=== PATIENT | female | born 1940 | race Caucasian/White ===

== ENCOUNTER 2019-03-10 15:27 | Inpatient (IN) | payer MEDICARE ==
[~2019-03-10] VITALS: Ht 165.1 cm; Wt 108.4 kg
[2019-03-10 15:53] VITALS: BP 152/94
[2019-03-10] MEDS ORDERED: LOPRESSOR50 PO ×2 (15:59→16:00)
[2019-03-10] MEDS ORDERED: MAGOX 400400 MG PO (15:59)
[2019-03-10] MEDS ORDERED: SUPER B-50 COM1 EACH PO (15:59)
[2019-03-10] MEDS ORDERED: VITAMIN D3400 UNIT PO (15:59)
[2019-03-10] MEDS ORDERED: SYNTHROID112 MC1 PO (16:00)
[2019-03-10] MEDS ORDERED: KLOR-CON 1010 MEQ PO (16:00)
[2019-03-10] MEDS ORDERED: COUMADIN 3 MG TA3 M1 PO (16:00)
[2019-03-10] MEDS ORDERED: ONE TOUCH DELI1 EAC2 TOP (16:01)
[2019-03-10 16:02] LABS: ABSOLUTE EOSINOPHILS 0.1 thou/uL (0.0-0.7); ABSOLUTE LYMPHOCYTES 1.3 thou/uL (0.8-5.3); ABSOLUTE MONOCYTES 0.5 thou/uL (0.0-1.2); ABSOLUTE NEUTROPHILS 6.9 thou/uL (1.6-8.1); BASOPHILS 0.4 %; EOSINOPHILS 0.6 %; HEMATOCRIT 58.4 % (37.0-47.0); HEMOGLOBIN 19.4 gm/dL (12.0-15.0); LYMPHOCYTES 14.2 %; MCH 32.8 pg (26.0-34.0); MCHC 33.2 g/dL (28.0-37.0); MCV 98.8 fL (80.0-100.0); MONOCYTES 5.9 %; MPV 9.4 fl. (7.2-11.1); NUCLEATED RBCS 0 /100WBC; PLATELET COUNT* 185 thou/uL (150-400); POLYS 78.9 %; RBC 5.91 mil/uL (4.20-5.00); RDW-CV 14.2 % (10.5-14.5); WBC 8.8 thou/uL (4.0-11.0)
[2019-03-10] MEDS ORDERED: POTASSIUM20 PO (16:02)
[2019-03-10 16:14] LABS: CALCIUM 10.1 mg/dL (8.5-10.1); CREATININE 1.2 mg/dL (0.6-1.3); POTASSIUM 4.4 mmol/L (3.5-5.1)
[2019-03-10 16:16] LABS: APTT 35.5 Seconds (25.0-31.3); INR 2.5; PROTIME 24.8 Seconds (9.20-11.50)
[2019-03-10 16:19] LABS: ALBUMIN 3.9 g/dL (3.4-5.0); TOTAL BILIRUBIN 1.3 mg/dL (<0.1-1.0); TOTAL PROTEIN 8.3 g/dL (6.4-8.2)
[2019-03-10 16:30] LABS: ACETAMINOPHEN < 2 ug/mL (10-30); ALCOHOL < 10 mg/dL (<10); SALICYLATE < 2.8 mg/dL (2.8-20.0)
[2019-03-10 17:35] LABS: URINE BILIRUBIN NEGATIVE (Negative); URINE BLOOD NEGATIVE (Negative); URINE CLARITY CLEAR; URINE COLOR YELLOW; URINE GLUCOSE-RANDOM NEGATIVE (Negative); URINE KETONES NEGATIVE (Negative); URINE LEUKOCYTES-REFLEX NEGATIVE (Negative); URINE PROTEIN TRACE (Negative); URINE SPECIFIC GRAVITY >= 1.030 (1.005-1.030); URINE UROBILINOGEN 0.2 E.U./dl (0.2-1.0)
[2019-03-10 17:39] LABS: URINE NITRITE-REFLEX POSITIVE (Negative)
[2019-03-10 17:43] LABS: AMP/METHAMP Negative (Negative); BARBITURATES Negative (Negative); BENZODIAZEPINES Negative (Negative); COCAINE Negative (Negative); METHADONE Negative (Negative); OPIATES Negative (Negative); PCP Negative (Negative); THC Negative (Negative)
[2019-03-10 17:57] LABS: SQUAMOUS 4-10 Moderate /LPF (0-3); URINE RBC None Seen /HPF (0-2); URINE WBC-REFLEX 0-5 Rare /HPF (0-5)
[2019-03-10 17:58] LABS: BACTERIA-REFLEX >30 Many /HPF (None Seen); CASTS None Seen /LPF (None Seen); CRYSTALS None Seen /LPF (None Seen)
[2019-03-10 23:08] VITALS: BP 118/82
[2019-03-10 23:15] VITALS: BP 157/40
--- NOTE | 2019-03-10 23:30 | NUR ---
RECEIVED REPORT FROM ER AND PT TO ROOM AT 2255. PT ABLE TO SLIDE SELF FROM CART TO BED, STATES SHE IS NON-AMBULATORY BUT DOES TRANSFER SELF FROM BED TO CHAIR OR COMMODE. RT DISTAL CALF NOTED TO HAVE FLUID FILLED BLISTER. LOWER LEG AND FOOT NOTED TO BE DISCOLORED AND TUFF FLAKY SKIN. RT GROIN AND PUBIC AREA WITH REDNESS. NO BREAKDOWN NOTED TO MICH AREAS OR BUTTOCK. TELEMETRY APPLIED SHOWING A-FIB, CARDIZEM INFUSING AT 5 MG/HR. PT IS TEARFUL AND TALKING ABOUT SITUATION. 1:1 OBSERVATION. WILL CONT TO MONITOR AND ASSIST NEED. SEE ADMISSION ASSESSMENT AND HX.
[2019-03-11 04:00] VITALS: BP 132/64
--- NOTE | 2019-03-11 06:45 | NUR ---
SLEPT WELL TONIGHT. REPOSITIONS SELF IN BED. REMAINS 1:1 OBSERVATION FOR SI. TELEMETRY CONT TO SHOW A-FIB WITH RATE 90-110'S. NO COMPLAINTS VOICED. HS GOALS OF REST AND SAFETY ACHIEVED.
[2019-03-11 08:00] VITALS: BP 142/78
[2019-03-11 09:39] LABS: ABSOLUTE EOSINOPHILS 0.1 thou/uL (0.0-0.7); ABSOLUTE LYMPHOCYTES 1.2 thou/uL (0.8-5.3); ABSOLUTE MONOCYTES 0.5 thou/uL (0.0-1.2); ABSOLUTE NEUTROPHILS 5.1 thou/uL (1.6-8.1); BASOPHILS 0.7 %; EOSINOPHILS 1.2 %; HEMATOCRIT 54.4 % (37.0-47.0); HEMOGLOBIN 18.3 gm/dL (12.0-15.0); LYMPHOCYTES 17.7 %; MCH 33.2 pg (26.0-34.0); MCHC 33.6 g/dL (28.0-37.0); MCV 98.9 fL (80.0-100.0); MONOCYTES 7.6 %; MPV 9.5 fl. (7.2-11.1); NUCLEATED RBCS 0 /100WBC; PLATELET COUNT* 144 thou/uL (150-400); POLYS 72.8 %; RDW-CV 14.5 % (10.5-14.5)
[2019-03-11 09:45] LABS: CALCIUM 9.3 mg/dL (8.5-10.1); CREATININE 0.9 mg/dL (0.6-1.3); MAGNESIUM 1.2 mg/dL (1.8-2.4); POTASSIUM 3.9 mmol/L (3.5-5.1)
--- NOTE | 2019-03-11 10:27 | EKG ---
[place] [address] ELECTROCARDIOGRAM REPORT Name: MARILEE CATHERINE Room: [address] ADM IN .R.#: [id number] Admission: 03/10/19 Attend Phys: Jason Marina MD Discharge: Date of : 40 Report #: [id number] THIS REPORT FOR: //name// [facility] ED Test Date: 2019-03-10 Test Time: 20:37:06 Pat Name: MARILEE CATHERINE Department: Room: [facility] Gender: F Cannon Crewmember: [place] : [id number] Requested By: Gopal Monreal Order Number: [id number] MD: Reynaldo Johnson Measurements Intervals [place]way Rate: 101 P: [place]: QRS: -68 QRSD: 98 T: 5 QT: 388 QTc: 503 Interpretive Statements Atrial fibrillation Ventricular premature complex Left anterior fascicular block Abnormal R-wave progression, early transition Borderline T abnormalities, inferior leads Prolonged QT interval No previous ECG available for comparison Electronically Signed On 03-11-2019 10:27:24 CDT by Reynaldo Johnson [email or web address] <ELECTRONICALLY SIGNED> By: Reynaldo Johnson MD, [facility] 03/11/19 1027 36 36 Reynaldo Johnson MD, [facility] /EPI
--- NOTE | 2019-03-11 11:18 | NUR ---
SW met with pt to complete initial assessment, introduce self, and SW role. Pt with 1:1 sitter due to SI according to ER upon admission. Pt was sitting edge of bed, alert, oriented, appropriate in conversation/talkative. Pt explained that she is wc level, has wc, BSC over toilet. Pt has a son and dtr who assisted with groceries, transportation to doctors' visits. Pt said she was hopeful that her dtr would let pt live at dtr's house for a while but pt says that pt dtr has not offered that option. Pt has lived in a hotel alone. Pt has hx with Greg Johnson; pt said she only stayed one day/night because she was told she wouldn't really get any rehab. Pt open to rehab if necessary, possibly [facility], but pt also said she wasn't sure if she would need rehab being wc level already. SW explained that there could be reasoning for a short rehab stay to gain more strength and functioning with wc level, but also would depend on pt functional level and doctor's recommendation/orders. SW also discussed possible psych placement when medically stable or at least OP psychiatric follow up at dc. Pt receptive to SNF/rehab option if needed as well as psych follow up. SW to continue to follow to assist with safe dc planning.
--- NOTE | 2019-03-11 12:07 | NUR ---
WOUND CARE NOTE: REQUESTED TO SEE PER PATIENT'S RN FOR A SKIN TEAR TO HER LEG. PATIENT PRESENTS WITH A RUPTURED BULLA TO THE POSTERIOR ASPECT OF HER RIGHT LEG, GAITER AREA. MARCI-WOUND IS EDEMATOUS AND INFLAMMED. BILATERAL LEGS WITH CHRONIC CHANGES, SUGGESTIVE OF VENOUS INSUFFICIENCY-HEMOSIDERIN STAINING, SCALEY SKIN. WOUND MEASURES 2.2X3X0.1. MOIST, RED WOUND BED. DRAINING SMALL AMOUNTS OF SEROUS DRAINAGE. CLEANSED WITH WOUND CLEANSER, PATTED DRY. APPLIED MULTIPLE LAYERS OF VASELINE GAUZE AND COVERED WITH ABD. SECURED WITH KERLIX THEN LIBERTAD. EDUCATED PATIENT ON DRESSING SELECTION, COMMUNICATED UNDERSTANDING. RECOMMEND DAILY DRESSING CHANGES TIGHT BLOOD GLUCOSE CONTROL ELEVATE RLE WHEN AT REST
[2019-03-11 12:45] VITALS: BP 135/77
--- NOTE | 2019-03-11 15:44 | 2DMMODE ---
[place] [address] 2 D/M-MODE ECHOCARDIOGRAM Name: MARILEE CATHERINE Room: [address] IN [facility]#: [id number] Admission: 03/10/19 Attend Phys: Jason Marina, Discharge: Date of : 40 Date of Service: 03/11/19 1543 Report #: [id number] THIS REPORT FOR: //name// APPROVED REPORT Study performed: 03/11/2019 14:12:27 EXAM: Comprehensive 2D, Doppler, and color-flow Echocardiogram Patient Location: In-Patient Room #: [facility] Status: routine BSA: 2.13 HR: 127 bpm BP: 135/77 mmHg Rhythm: Atrial Fibrillation Other Information Study Quality: Good Indications Atrial Fibrillation 2D Dimensions IVSd: 12.35 (7-11mm) LVOT Diam: 19.09 (18-24mm) LVDd: 43.36 mm PWd: 11.54 (7-11mm) Ascending Ao: 32.53 (22-36mm) LVDs: 25.89 (25-40mm) Aortic Root: 32.34 mm Volumes Left Atrial Volume (Systole) LA ESV Index: 23.50 mL/m2 Aortic Valve AoV Peak Dominguez.: 1.63 m/s AO Peak Gr.: 10.60 mmHg LVOT Max P.62 mmHg AO Mean Gr.: 6.14 mmHg LVOT Mean P.21 mmHg LVOT Max V: 0.81 m/s AO V2 VTI: 24.08 cm LVOT Mean V: 0.50 m/s MAI (VTI): 1.56 cm2 LVOT V1 VTI: 13.11 cm Mitral Valve MV Decel. Time: 147.30 ms MV PHT: 42.72 ms MVA (PHT): 5.15 [place]2 [place] [address] 2 D/M-MODE ECHOCARDIOGRAM Name: MARILEE CATHERINE Room: [address] IN .R.#: [id number] Admission: 03/10/19 Attend Phys: Jason Marina, Discharge: Date of : 40 Date of Service: 03/11/19 1543 Report #: [id number] TDI Medial E' Dominguez.: 0.14 m/s Lateral E' Dominguez.: 0.17 m/s Pulmonary Valve PV Peak Dominguez.: 0.98 m/s PV Peak Gr.: 3.82 mmHg Tricuspid Valve RAP Estimate: 15.00 mmHg TR Peak Gr.: 71.90 mmHg RVSP: 86.00 mmHg PA Pressure: 86.00 mmHg Left Ventricle The left ventricle is normal size. There is normal LV segmental wall motion. Mild concentric left ventricular hypertrophy. Left ventricular systolic function is normal. The left ventricular ejection fraction is within the normal range. LVEF is 60-65%. This study is not technically sufficient to allow evaluation of the LV diastolic function due to atrial fibrillation. Right Ventricle Right ventricle is dilated. The right ventricular systolic function is normal. Atria The left atrium size is normal. Right atrium is dilated. Aortic Valve The Aortic valve is sclerotic. No aortic regurgitation is present. There is no aortic valvular stenosis. Mitral Valve The mitral valve is normal in structure. Trace mitral regurgitation. No evidence of mitral valve stenosis. Tricuspid Valve The tricuspid valve is normal in structure. Mild tricuspid regurgitation. estimated pa pressure 70 mm Hg Pulmonic Valve The pulmonary valve is normal in structure. There is no pulmonic valvular regurgitation. Great Vessels The aortic root is normal in size. IVC [place] [address] 2 D/M-MODE ECHOCARDIOGRAM Name: MARILEE CATHERINE Room: [address] IN [facility]#: [id number] Admission: 03/10/19 Attend Phys: Jason Marina, Discharge: Date of : 40 Date of Service: 03/11/19 1543 Report #: [id number] <50% with inspiration. Pericardium There is no pericardial effusion. <Conclusion> Mild concentric left ventricular hypertrophy. LVEF is 60-65%. Right atrium is dilated. The Aortic valve is sclerotic. Mild tricuspid regurgitation. estimated pa pressure 70 mm Hg <ELECTRONICALLY SIGNED> By: Reynaldo Johnson MD, [facility] 03/11/19 1543 1543 1543 Reynaldo Johnson MD, FAC /INF
[2019-03-11 15:57] VITALS: BP 126/66
[2019-03-11 20:00] VITALS: BP 113/61
[2019-03-11 23:00] VITALS: BP 117/66
[2019-03-12] VITALS: BP 117/66
[2019-03-12 02:06] LABS: GLYCOHEMOGLOBIN (HGB A1C) 6.8 % (4.8-5.6)
[2019-03-12 04:00] VITALS: BP 125/80
--- NOTE | 2019-03-12 04:01 | NUR ---
PT ALERT ORIENTED. 1:1 SITTER WITH PT FOR SI. UP TO BSC WITH PIVOT AND ASSIST OF ONE. CARDIZEM QTT DC AT 2330. AFIB 60S-70S. O2 SATS MARGINAL 87-89% O2 AT 2 LITERS STARTED.
[2019-03-12 04:25] LABS: ABSOLUTE EOSINOPHILS 0.1 thou/uL (0.0-0.7); ABSOLUTE LYMPHOCYTES 1.4 thou/uL (0.8-5.3); ABSOLUTE MONOCYTES 0.8 thou/uL (0.0-1.2); ABSOLUTE NEUTROPHILS 5.2 thou/uL (1.6-8.1); BASOPHILS 0.6 %; EOSINOPHILS 1.8 %; HEMATOCRIT 52.4 % (37.0-47.0); HEMOGLOBIN 16.8 gm/dL (12.0-15.0); LYMPHOCYTES 18.9 %; MCH 32.2 pg (26.0-34.0); MCV 100.6 fL (80.0-100.0); MONOCYTES 10.2 %; MPV 9.7 fl. (7.2-11.1); NUCLEATED RBCS 0 /100WBC; PLATELET COUNT* 122 thou/uL (150-400); POLYS 68.5 %; RDW-CV 14.5 % (10.5-14.5); WBC 7.6 thou/uL (4.0-11.0)
[2019-03-12 04:38] LABS: CALCIUM 9.1 mg/dL (8.5-10.1); CREATININE 0.9 mg/dL (0.6-1.3); MAGNESIUM 2.1 mg/dL (1.8-2.4); POTASSIUM 3.5 mmol/L (3.5-5.1)
[2019-03-12 04:50] LABS: INR 2.1; PROTIME 20.6 Seconds (9.20-11.50)
[2019-03-12 07:47] VITALS: BP 150/77
[2019-03-12 11:32] VITALS: BP 103/48
[2019-03-12 16:00] VITALS: BP 98/56
--- NOTE | 2019-03-12 16:32 | NUR ---
SW followed up with pt and discussed safe dc planning. Pt admitted that she only had the hotel paid through Saturday. SW discussed other possible options with any family support/assistance. Pt said that she would contact her brother if she could have her purse/phone back to be able to call. SW notified nursing and security to assist in pt being able to discuss plans with her family. Pt said that if her family would not be able to let pt stay with them, then she would consider SNF at [facility] for a while. SW faxed referral to [facility] to see if they would be able to accept pt for SNF or not. Pt 12 years ago. Pt said that her dtr is almost 60 but had expressed to pt that pt dtr was concerned pt would "come in and try to boss and control everything". Pt said that she thinks if she talks with her brother, he may be able to talk with pt dtr to see if something could be arranged at least temporarily. JOHANA received call earlier today from Mere with [facility] who was following up after a hotline call Mere had received. Mere plans to follow up with pt tomorrow; pt does not yet know that this call/investigation is underway. SW to continue to follow to assist with safe dc planning.
[2019-03-12 20:00] VITALS: BP 114/42
--- NOTE | 2019-03-12 20:00 | NUR ---
RECEIVED REPORT AND ASSUMED CARE OF PT, ASSESSMENT COMPLETED. PT SITTING IN W/C WATCHING TV. RT LOWER LEG WITH ACEWRAP, COMPRESSION DRSG ON. NO COMPLAINTS VOICED. TELEMETRY ON SHOWING A-FIB. WILL CONT TO MONITOR AND ASSIST NEEDED.
[2019-03-13] VITALS: BP 110/68
[2019-03-13 04:00] VITALS: BP 106/68
--- NOTE | 2019-03-13 04:30 | NUR ---
O2 SAT 88%, PLACED O2 ON AT 2L/NC. PT UPSET AND DID NOT WANT THIS. EDUCATED PT ABOUT NEED. WAS NOT HAPPY BUT LEFT O2 ON.
[2019-03-13 05:17] LABS: INR 2.2; PROTIME 22.4 Seconds (9.20-11.50)
[2019-03-13 05:34] LABS: CALCIUM 8.7 mg/dL (8.5-10.1); CREATININE 0.9 mg/dL (0.6-1.3); MAGNESIUM 1.5 mg/dL (1.8-2.4); POTASSIUM 3.8 mmol/L (3.5-5.1)
--- NOTE | 2019-03-13 06:59 | NUR ---
SLEPT WELL TONIGHT. ASSISTED TO BR AND BACK. TELEMETRY CONT TO SHOW A-FIB. NO CHANGE IN ASSESSMENT. HS GOALS OF REST AND SAFETY ACHIEVED. HOURLY ROUNDING OBSERVED.
[2019-03-13 07:40] VITALS: BP 109/64
--- NOTE | 2019-03-13 10:27 | NUR ---
PT A/O. TELE TRACKING AFIB AND ALL VSS ON ROOM 2L. DENIES CP, SOA-SOME WHEEZING NOTED. UP TO W/C THIS AM. DRESSING TO RIGHT AVILES IN PLACE-CDI. GROIN/ABD FOLDS RED/YEASTY- SKIN CARE/BATH PROVIDED. PT LOOKING FORWARD TO DC TO [facility] LATER TODAY PENDING AUTH. FAMILY AT BEDSIDE THIS AM. EDUCATED ON SAFETY AND PLAN OF CARE. PLEASE SEE ASSESSMENT FOR ADDITIONAL INFORMATION. WILL CONT TO MONITOR
[2019-03-13 11:58] VITALS: BP 122/65
[2019-03-13 15:58] VITALS: BP 124/71
[2019-03-13] MEDS ORDERED: VITAMIN D1000 UNI1 PO (16:27)
[2019-03-13] MEDS ORDERED: MAGOX 400400 MG PO (16:27)
[2019-03-13] MEDS ORDERED: CYMBALTA30 MG PO (16:28)
[2019-03-13] MEDS ORDERED: DYNACIN100 MG PO (16:29)
--- NOTE | 2019-03-13 17:03 | NUR ---
SW received call from [facility] this morning denying pt to their SNF due to recent SI and not feeling that they could meet pt needs. SW discussed with pt and provided list of other SNFs. SW faxed referral to [place] facilities, [place] [facility] able [facility] pt today and arranged ride for around 6:30 pm. JOHANA faxed final orders/dc summary/med list to [place]. [phone] fax [phone]. Pt nurse aware and pt in agreement with plan; pt to notify any family as needed.
[2019-03-13 17:04] VITALS: BP 124/71
== END 2019-03-13 18:27 | DRG 602 ==
LOC: M.ERS 15:27 → M.TBA-ER 21:57 → M.2W 21:57
PROVIDERS: Emergency Medicine; Family Medicine; ADMIT Internal Medicine
DX: L03.115 Cellulitis of right lower limb (principal); J80 Acute respiratory distress syndrome; R45.851 Suicidal ideations; I48.91 Unspecified atrial fibrillation; R53.82 Chronic fatigue, unspecified; E11.9 Type 2 diabetes mellitus without complications; M19.90 Unspecified osteoarthritis, unspecified site; E03.9 Hypothyroidism, unspecified; E83.42 Hypomagnesemia; G47.33 Obstructive sleep apnea (adult) (pediatric); F32.9 Major depressive disorder, single episode, unspecified; Z90.710 Acquired absence of both cervix and uterus; Z90.49 Acquired absence of other specified parts of digestive tract; Z86.718 Personal history of other venous thrombosis and embolism; Z86.711 Personal history of pulmonary embolism; Z88.6 Allergy status to analgesic agent; Z88.1 Allergy status to other antibiotic agents; Z82.49 Family history of ischemic heart disease and other diseases of the circulatory system; Z88.8 Allergy status to other drugs, medicaments and biological substances; Z91.040 Latex allergy status; Z79.899 Other long term (current) drug therapy